=== PATIENT | female | born 1995 | race African-American/Black ===

== ENCOUNTER 2016-12-18 16:50 | Emergency (ER) | payer BC ==
[~2016-12-18] VITALS: Ht 172.7 cm; Wt 86.2 kg
[2016-12-18 16:50] VITALS: BP 135/75
[~2016-12-18 16:50] MED LIST: IBUP800T19 PO; POLY17PO5 PO
[2016-12-18] MEDS ORDERED: ACET325T9 PO (17:09)
[2016-12-18] MEDS ORDERED: NAPR275T59 PO (17:09)
[2016-12-18] MEDS ORDERED: PENICILLIN G BENZATHINE LA 1,200,000 UNIT/2 ML DISP.SYRIN. IM ONE (17:15)
[2016-12-18] MEDS ORDERED: DEXAMETHASONE SOD PHOS 10 MG/ML VIAL PO ONE (17:15)
[2016-12-18] MEDS ORDERED: ACETAMINOPHEN 500 MG TABLET PO ONE (17:15)
--- NOTE | 2016-12-18 17:20 | PHYS DOC ---
Past History Past Medical History: No Pertinent History Past Surgical History: Other Smoking: Non-smoker Alcohol Use: None Drug Use: None Adult General Chief Complaint Chief Complaint: sore throat and near-syncope HPI HPI SHe is a pleasant 21-year-old otherwise healthy female who presents with a sore throat and near-syncopal episode while at work. Patient admits she's not been feeling well since yesterday when she developed a little bit of a sore throat described as a dull ache in the back of her throat with no change in voice. She' s had subjective fevers and chills have gotten progressively over the course of today. While standing in clinical she began to get lightheaded and dizzy although she did not lose consciousness she got diaphoretic and experienced pallor erection. Patient also had some mild midepigastric abdominal pain and nausea that is resolved. Patient denies any cough, denies any sick contacts, denies any hearing loss, denies any ear drainage, runny nose or other symptoms. There is no sick contacts at home, no recent travel and no recent antibiotics. sHe denies any anterior neck fullness or headache with stiff neck. Review of Systems Review of Systems Constitutional: Subjective fevers and chills Eyes: Denies change in visual acuity, redness, or eye pain [] HENT: Denies nasal congestion he does have a sore throat Respiratory: Denies cough or shortness of breath [] Cardiovascular: No additional information not addressed in HPI [] GI: Denies abdominal pain, nausea, vomiting, bloody stools or diarrhea [] : Denies dysuria or hematuria [] Musculoskeletal: Denies back pain or joint pain [] Integument: Denies rash or skin lesions [] Neurologic: Denies headache, focal weakness or sensory changes she has generalized weakness with almost near syncopal episode [] Endocrine: Denies polyuria or polydipsia [] Allergies Allergies Allergies Coded Allergies Type Severity Reaction Last Updated Verified No Known Drug Allergies 03/14/14 No Physical Exam Physical Exam Vital signs recorded on the chart noted to be mildly tachycardic with a low- grade fever. Patient not hypertensive not hypoxic not tachypnea. Constitutional: Well developed, well nourished, patient is no acute distress nontoxic in appearance but looking uncomfortable[] HENT: Normocephalic, atraumatic, bilateral external ears normal, oropharynx moist, she clearly has tonsillar hypertrophy or +2 significant tonsillar exudates with extensive tonsillar crypts. Nose normal. sHe has clear anterior lymphadenopathy in the anterior cervical change [] Eyes: PERRLA, EOMI, conjunctiva normal, no discharge. [] Neck: Normal range of motion, no tenderness, supple, no stridor. [] Cardiovascular: Noted tachycardia without murmurs, rubs or rubs. Lungs & Thorax: Bilateral breath sounds clear to auscultation [] Abdomen: Bowel sounds normal, soft, no tenderness, no masses, no pulsatile masses. [] Skin: Warm, dry, no erythema, no rash. [] Extremities: No tenderness, no cyanosis, no clubbing, ROM intact, no edema. [] Neurologic: Alert and oriented X 3, normal motor function, normal sensory function, no focal deficits noted. [] Psychologic: Affect normal, judgement normal, mood normal. [] EKG EKG [] Radiology/Procedures Radiology/Procedures [] Course & Med Decision Making Course & Med Decision Making Pertinent Labs and Imaging studies reviewed. (See chart for details) Patient presents with what I believe to be strep pharyngitis. Patient by centor criteria meats all criteria to be treated empirically. I believe the patient's fever and tachycardia is appropriate for level of fever and dehydration. Patient received Toradol, Bicillin LA, Decadron, and Tylenol. I will ensure that she can tolerate these medications and disposition her properly. Centor criteria: The Centor criteria are a widely used and accepted clinical decision tool These criteria are: Tonsillar exudates Tender anterior cervical adenopathy Fever by history Absence of cough The likelihood of having GAS increases with the number of Centor criteria. However, the Centor criteria are most useful in identifying patients for whom neither microbiologic tests nor antimicrobial therapy are necessary. Patients with fewer than three (0 to 2) Centor criteria are unlikely to have GAS and, in general, should not receive either antibiotic treatment or diagnostic testing. [] Dragon Disclaimer Dragon Disclaimer This chart was dictated in whole or in part using Voice Recognition software in a busy, high-work load, and often noisy Emergency Department environment. It may contain unintended and wholly unrecognized errors or omissions. Departure Departure: Impression: Primary Impression: Pharyngitis Disposition: HOME, SELF-CARE Condition: STABLE Referrals: NILDA,EJ M PA (PCP) Patient Instructions: Viral and Bacterial Pharyngitis Additional Instructions: My discharge plan Follow up: In addition patient is asked to followup with their primary doctor, within a week for followup examination and to address patient's ongoing medical conditions. Patient is advised that in the Emergency Department primary complaints are addressed and only in light of known signs and symptoms. Patient should return immediately to the emergency department if new signs and symptoms develop or patient's condition worsens in any way. At time of discharge patient was in stable condition and had verbalized understanding of the discharge instructions. Scripts Acetaminophen (TYLENOL) 325 Mg Tablet 1-2 TAB PO QID, #30 TAB 2 Refills Prov: JUAN SHABAZZ MD 12/18/16 Naproxen Sodium (NAPROXEN SODIUM) 275 Mg Tablet 275 MG PO BID for 7 Days, #14 TAB Prov: JUAN SHABAZZ MD 12/18/16 JUAN SHABAZZ MD Dec 18, 2016 17:20
[2016-12-18] MEDS ORDERED: KETOROLAC 60 MG/2 ML VIAL. IM ONE (17:30)
== END 2016-12-18 18:05 | disposition home or self-care (01) ==
LOC: ER 16:50
DX: J02.9 Acute pharyngitis, unspecified (principal); R55 Syncope and collapse; R50.9 Fever, unspecified
CPT/HCPCS: 81025; 96372; 99284; J0561; J1100; J1885

== ENCOUNTER 2017-11-21 20:20 | Emergency (ER) | payer BC ==
[~2017-11-21] VITALS: Ht 172.7 cm; Wt 127.0 kg
[~2017-11-21 20:20] MED LIST changes: +ACET325T9 PO; +NAPR275T59 PO
[2017-11-21 20:25] VITALS: BP 129/88
--- NOTE | 2017-11-21 21:19 | PHYS DOC ---
Past History Past Medical History: No Pertinent History Past Surgical History: No Surgical History Smoking: Non-smoker Alcohol Use: None Drug Use: None Adult General Chief Complaint Chief Complaint: MULTIPLE COMPLAINTS HPI HPI 22-year-old female presents with nasal congestion, facial pressure, sore throat. Patient states that she was feeling normal until yesterday. She began to have a runny nose and mild sore throat. Today the patient has had a more severe sore throat and has had chills throughout the day. She has no known sick contacts. She states having a low-grade fever but does not remember the number. She denies cough or shortness of breath. Review of Systems Review of Systems Constitutional: Denies fever or chills [] Eyes: Denies change in visual acuity, redness, or eye pain [] HENT: nasal congestion and sore throat [] Respiratory: Denies cough or shortness of breath [] Cardiovascular: No additional information not addressed in HPI [] GI: Denies abdominal pain, nausea, vomiting, bloody stools or diarrhea [] : Denies dysuria or hematuria [] Musculoskeletal: Denies back pain or joint pain [] Integument: Denies rash or skin lesions [] Neurologic: Denies headache, focal weakness or sensory changes [] Endocrine: Denies polyuria or polydipsia [] All other systems were reviewed and found to be within normal limits, except as documented in this note. Allergies Allergies Allergies Coded Allergies Type Severity Reaction Last Updated Verified No Known Drug Allergies 03/14/14 No Physical Exam Physical Exam Constitutional: Well developed, well nourished, no acute distress, non-toxic appearance. [] HENT: Normocephalic, atraumatic, bilateral external ears normal, oropharynx erythematous, no oral exudates, nose clear rhinorrhea. Right tympanic membrane erythematous, dull [] Eyes: PERRLA, EOMI, conjunctiva normal, no discharge. [] Neck: Normal range of motion, mild tenderness, supple, no stridor. [] Cardiovascular:Heart rate regular rhythm, no murmur [] Lungs & Thorax: Bilateral breath sounds clear to auscultation [] Abdomen: Bowel sounds normal, soft, no tenderness, no masses, no pulsatile masses. [] Skin: Warm, dry, no erythema, no rash. [] Back: No tenderness, no CVA tenderness. [] Extremities: No tenderness, no cyanosis, no clubbing, ROM intact, no edema. [] Neurologic: Alert and oriented X 3, normal motor function, normal sensory function, no focal deficits noted. [] Psychologic: Affect normal, judgement normal, mood normal. [] Current Patient Data Vital Signs Vital Signs Date Time Temp Pulse Resp B/P (MAP) Pulse Ox O2 Delivery O2 Flow Rate FiO2 11/21/17 20:25 99.7 123 20 96 Room Air EKG EKG [] Radiology/Procedures Radiology/Procedures [] Course & Med Decision Making Course & Med Decision Making Pertinent Labs and Imaging studies reviewed. (See chart for details) Patient's rapid strep is negative. Her physical exam of the right tympanic membrane is concerning for acute otitis media. I will treat her with Augmentin for 10 days. [] Dragon Disclaimer Dragon Disclaimer This electronic medical record was generated, in whole or in part, using a voice recognition dictation system. Departure Departure: Referrals: EJ MUNGUIA (PCP) TINA FRYE DO Nov 21, 2017 21:19
[2017-11-21] MEDS ORDERED: AMOX1TAB61 PO (21:40)
[2017-11-21] MEDS ORDERED: AMOXICILLIN/K CLAV 875/125MG TABLET. PO ONE (22:00)
== END 2017-11-21 21:55 | disposition home or self-care (01) ==
LOC: ER 20:20
DX: L53.8 Other specified erythematous conditions (principal); J02.9 Acute pharyngitis, unspecified
CPT/HCPCS: 87070; 87880; 99283

== ENCOUNTER → 2018-09-08 | Outpatient (CLI) | payer BC ==
[~2018-09-08] MED LIST changes: +AMOX1TAB61 PO
--- NOTE | 2018-09-08 08:27 | RAD ---
Left ankle, 2 views, 09/08/2018: HISTORY: Ankle pain after a fall No fracture or dislocation is identified. There is moderate soft tissue swelling over the lateral malleolus. IMPRESSION: No acute bony abnormality is detected. Electronically signed by: Pb Bautista MD (09/08/2018 8:24 AM) [facility]
== END | disposition home or self-care (01) ==
LOC: PMG 07:47
PROVIDERS: ATTEND Physician Assistant Medical
DX: M25.472 Effusion, left ankle (principal); W19.XXXA Unspecified fall, initial encounter; Y93.89 Activity, other specified; Y92.89 Other specified places as the place of occurrence of the external cause; Y99.8 Other external cause status
CPT/HCPCS: 73600